=== PATIENT | female | born 1975 | race Caucasian/White ===

== ENCOUNTER 2022-06-13 11:36 | Emergency (ER) | payer MEDICARE ==
[~2022-06-13] VITALS: Ht 157.5 cm; Wt 86.4 kg
[2022-06-13] MEDS ORDERED: FENO145T7 PO (11:46)
[2022-06-13] MEDS ORDERED: INDE80CA10 PO (11:46)
[2022-06-13] MEDS ORDERED: LEXA1TAB PO (11:46)
[2022-06-13] MEDS ORDERED: VERA240T65 PO (11:46)
[2022-06-13] MEDS ORDERED: SIMV20TA22 PO (11:46)
[2022-06-13] MEDS ORDERED: LAMO100T80 PO (11:46)
[2022-06-13 13:47] LABS: RSV AMPLIFICATION NEGATIVE (NEGATIVE)
[2022-06-13] MEDS ORDERED: AZIT-12 PO (14:45)
[2022-06-13] MEDS ORDERED: BENZ200C70 PO (14:45)
[2022-06-13] MEDS ORDERED: VENTAER INH (14:45)
[2022-06-13 15:02] VITALS: BP 119/72
== END 2022-06-13 15:11 | disposition home or self-care (01) ==
LOC: M ED 11:36
DX: J01.00 Acute maxillary sinusitis, unspecified (principal); J20.9 Acute bronchitis, unspecified; H66.91 Otitis media, unspecified, right ear; E78.5 Hyperlipidemia, unspecified; F17.200 Nicotine dependence, unspecified, uncomplicated; F12.10 Cannabis abuse, uncomplicated; Z79.899 Other long term (current) drug therapy; Z88.0 Allergy status to penicillin